=== PATIENT | female | born 1980 | race Caucasian/White ===

== ENCOUNTER 2019-07-16 13:08 | Emergency (ER) | payer MEDICARE, MEDICAID, SELFPAY ==
[2019-07-16 13:37] VITALS: BP 147/82; PULSE 75; RESP 16; TEMP 36.9; O2SAT 98
--- NOTE | 2019-07-16 14:02 | ED.URI ---
HPI - URI/Sore Throat General Chief Complaint: Upper Respiratory Infection Stated Complaint: sinus infection Time Seen by Provider: 07/16/19 14:02 Source: patient and RN notes reviewed History of Present Illness HPI Narrative: Patient is a 39-year-old female presents the urgent care with complaints of sinus infection . Patient states she has had a nonproductive cough, sinus congestion, facial pressure, rhinorrhea. Patient denies any fever. Has been using Mucinex without much relief. No other acute complaints. No acute distress noted. Patient aware the plan of care. Related Data Home Medications Medication Instructions Recorded Confirmed No Home Medications 07/16/19 07/16/19 Allergies Allergy/AdvReac Type Severity Reaction Status Date / Time latex Allergy Mild skin rash Verified 07/16/19 14:12 to area latex touches. Review of Systems Review of Systems: Narrative: CONSTITUTIONAL: Denies fever, chills, or sweats. EYES: Denies visual changes, redness, or discharge. ENT: Reports of rhinorrhea, congestion, facial pressure CARDIOVASCULAR: Denies chest pain, palpitations, or edema. RESPIRATORY: Reports a nonproductive cough without dyspnea GASTROINTESTINAL: Denies abdominal pain, nausea, vomiting, or diarrhea. GENITOURINARY: Denies dysuria or hematuria. SKIN: Denies rash or itching. MUSCULOSKELETAL: Denies back pain, joint pain, or myalgia. NEUROLOGIC: Denies headache, numbness, or weakness. All other systems reviewed are negative, except as documented in HPI. PMFSH Comments At the time of my signature, I reviewed and agree with the nursing past medical, surgical, social, and family history. There is no relevant family history pertinent to the patient complaint. Exam Narrative: Exam Narrative: GENERAL: This is a well-nourished, well-developed patient, in no apparent distress. HEAD: normocephalic, atraumatic. EYES: PERRL. Sclera clear/white. Vision is grossly intact. EARS: External ears normal, auditory canals clear and without drainage, unable to visualize right TM due to cerumen impaction, left TMs normal without perforation. Hearing grossly intact. NOSE: External nose normal with no obvious nasal discharge, bilateral erythemic nares with clear rhinorrhea. THROAT: Mucous membranes moist, posterior pharynx clear. NECK: Neck supple, non-tender without lymphadenopathy CARDIOVASCULAR: Regular rate and rhythm without murmurs, gallops, or rubs. RESPIRATORY: Clear to auscultation. Breath sounds equal bilaterally. No wheezes, rales, or rhonchi. SKIN: warm, intact with no suspicious lesions or rash, good texture and turgor. NEURO: awake, alert, and oriented to person, place and time. There were no obvious focal neurologic abnormalities. EXTREMITIES: No clubbing, cyanosis, or edema. No joint tenderness, effusion, or edema noted. Course Vital Signs Vital signs: Vital Signs Temperature 98.4 F 07/16/19 13:37 Pulse Rate 75 07/16/19 13:37 Respiratory Rate 16 07/16/19 13:37 Blood Pressure 147/82 H 07/16/19 13:37 Pulse Oximetry 98 07/16/19 13:37 Temperature 98.4 F 07/16/19 13:37 Pulse Rate 75 07/16/19 13:37 Respiratory Rate 16 07/16/19 13:37 Blood Pressure 147/82 H 07/16/19 13:37 Pulse Oximetry 98 07/16/19 13:37 Reviewed?patient is informed that they may have pre-hypertension or hypertension based on a blood pressure reading in the department. I recommend the patient call the primary care provider listed on their discharge instructions or a physician of their choice this week to arrange follow-up for further evaluation of possible pre-hypertension or hypertension. MDM - URI/Sore Throat MDM Narrative Medical decision making narrative: Advised the patient to use Claritin and Flonase [id number] for postnasal drainage and sinus relief. Use humidifier at night. Use Tylenol/ibuprofen as needed. Increase fluids and rest. Follow-up with PCP within 2 to 5 days or for worsening s
== END 2019-07-16 14:16 | disposition home or self-care (01) ==
PROVIDERS: Emergency Provider Nurse Practitioner Family
DX: J06.9 Acute upper respiratory infection, unspecified (principal)
CPT/HCPCS: 99211; G0463

== ENCOUNTER 2021-01-22 14:07 | Emergency (ER) | payer MEDICARE, MEDICAID, SELFPAY ==
--- NOTE | ~2021-01-22 | XR_ITS ---
EXAMINATION: XR chest 2V DATE: 01/22/2021 15:18 INDICATION: Cough. COVID-19 positive. TECHNIQUE: Frontal and lateral views of the chest were obtained. COMPARISON: Chest 2 views 01/08/2010 FINDINGS: The chest demonstrates clear lungs without pneumonia, pleural effusion, or pneumothorax. Th e heart size is normal. IMPRESSION: 1. No acute cardiopulmonary disease. Reviewed, dictated and finalized at location A.
[2021-01-22 14:16] VITALS: BP 151/97; PULSE 109; RESP 18; TEMP 37.3; O2SAT 99
[2021-01-22 14:20] VITALS: BP 151/97; PULSE 109; RESP 18; TEMP 37.3; O2SAT 99
--- NOTE | 2021-01-22 14:39 | ED.ABDPAIN ---
HPI - Abdominal Pain General Chief Complaint: Upper Respiratory Infection Stated Complaint: Coughing, congestion and right Abdomen pain Time Seen by Provider: 01/22/21 14:39 Source: patient Mode of arrival: ambulatory Limitations: no limitations History of Present Illness HPI narrative: Priya Kee is a 40 yo female with respiratory symptoms including cough fever chills for the last 2 days she has a history of having COPD and hypertension she has had no nausea vomiting or diarrhea but she was up all night long with a coughing spell which was dry and drove her to come to urgent care today Blood pressure is elevated and she is tachycardic Related Data Home Medications Medication Instructions Recorded Confirmed quetiapine 400 mg PO DAILY 01/22/21 01/22/21 Allergies Allergy/AdvReac Type Severity Reaction Status Date / Time latex Allergy Mild skin rash Verified 01/22/21 14:20 to area latex touches. Review of Systems Review of Systems: CONSTITUTIONAL: Denies fever, chills, sweats. Headache EYES: Denies visual changes, redness, discharge. ENT: Denies rhinorrhea, congestion, sore throat, otalgia. CARDIOVASCULAR: Denies chest pain, palpitations, edema. RESPIRATORY: Denies dyspnea, wheezing, dry cough, chest wall pain GASTROINTESTINAL no abdominal pain, nausea, vomiting, diarrhea. GENITOURINARY: Denies dysuria, hematuria, abnormal discharge SKIN: Denies rash or itching. NEUROLOGIC: Denies numbness, or focal weakness. PSYCHIATRIC: Denies anxiety or depression. PMFSH Past Medical History Medical History (Updated 01/22/21 @ 15:53 by Kailee Davison CNP) COPD (chronic obstructive pulmonary disease) Hypertension Family History Family History (Updated 01/22/21 @ 15:12 by Kailee Davison CNP) Other Diabetes mellitus Heart disease Hypertension Social History Social History (Updated 01/22/21 @ 15:12 by Kailee Davison CNP) Smoking packs per day: 0.25 Smoking cigarettes per day: 5.0 Smoking status: Current every day smoker Alcohol intake: current Comments At time of signature, I agree with nursing past medical, surgical, social and family history. There is no relevant family history pertinent to the presenting complaint. Exam Narrative: GENERAL: This is a well-nourished, well-developed patient, in mild distress. HEAD: normocephalic, atraumatic. EYES:Sclera clear/white. Vision is grossly intact. EARS: External ears normal, auditory canals clear and without drainage, TMs normal without perforation. Hearing grossly intact. NOSE: External nose normal without nasal discharge, nares without redness, no rhinorrhea. THROAT: Mucous membranes moist, posterior pharynx erythema NECK: Neck supple, non-tender CARDIOVASCULAR: Tachycardia rate and rhythm without murmurs, gallops, or rubs. RESPIRATORY: Clear to auscultation. Breath sounds equal bilaterally. No wheezes, rales, or rhonchi. GASTROINTESTINAL: Abdomen soft, non-tender, SKIN: warm, intact with no suspicious lesions or rash, good texture and turgor. NEURO: awake, alert, and oriented to person, place and time. There were no obvious focal neurologic abnormalities. Steady gait EXTREMITIES: Normal range of motion. BACK: Nontender without deformity Course Course Emergency Course: Patient comes here for respiratory symptoms including cough chills General fever not feeling well COVID is positive Complaints of right-sided chest wall pain chest x-ray done -no acute cardiopulmonary disease Patient started on albuterol inhaler, prednisone, Tessalon Michele, Zyrtec Patient is to quarantine for 10 days as well as those of her family members in the household have been exposed her Vital Signs Vital signs: Vital Signs Temperature 99.2 F 01/22/21 14:16 Pulse Rate 109 H 01/22/21 14:16 Respiratory Rate 18 01/22/21 14:16 Blood Pressure 151/97 H 01/22/21 14:16 Pulse Oximetry 99 01/22/21 14:16 Temperature 99.2 F 01/03
== END 2021-01-22 16:00 | disposition home or self-care (01) ==
PROVIDERS: Emergency Provider Nurse Practitioner
DX: U07.1 COVID-19 (principal); F17.210 Nicotine dependence, cigarettes, uncomplicated; J44.9 Chronic obstructive pulmonary disease, unspecified; I10 Essential (primary) hypertension
CPT/HCPCS: 71046; 87426; 99213; C9803; G0463

== ENCOUNTER 2021-04-30 14:07 | Emergency (ER) | payer MEDICARE, MEDICAID, SELFPAY ==
[2021-04-30 14:17] VITALS: BP 122/79; PULSE 90; RESP 14; TEMP 37.9; O2SAT 98
--- NOTE | 2021-04-30 15:07 | ED.FEMALEGU ---
HPI - Female Genitourinary General Chief complaint: Urogenital-Female Stated complaint: poss uti Time Seen by Provider: 04/30/21 15:01 Source: patient and RN notes reviewed Mode of arrival: ambulatory Limitations: no limitations History of Present Illness HPI Narrative: Patient presents today complaining of urinary frequency, lower abdominal pressure, and dysuria since yesterday, worse since today. Denies hematuria, nausea or vomiting, chills or sweats. She has tried no medication for symptoms prior to arrival. MD elicited complaint: UTI Related Data Home Medications Medication Instructions Recorded Confirmed quetiapine [Seroquel] 400 mg PO HS 04/30/21 04/30/21 Allergies Allergy/AdvReac Type Severity Reaction Status Date / Time latex Allergy Mild skin rash Verified 04/30/21 14:26 to area latex touches. Review of Systems Review of Systems: CONSTITUTIONAL: Denies body aches, fever, chills, or sweats. EYES: Denies visual changes, redness, or discharge. ENT: Denies rhinorrhea, congestion, sore throat, or otalgia. CARDIOVASCULAR: Denies chest pain, palpitations, or edema. RESPIRATORY: Denies cough or dyspnea. GASTROINTESTINAL: Denies abdominal pain, nausea, vomiting, or diarrhea. GENITOURINARY: + Dysuria, frequency, lower abdominal pressure SKIN: Denies rash, itching, or wounds. MUSCULOSKELETAL: Denies back pain, joint pain, or myalgia. NEUROLOGIC: Denies headache, numbness, tingling, or weakness. PSYCH: Denies depression or anxiety. FOR[facility], [facility] Past Medical History Medical History COPD (chronic obstructive pulmonary disease) Hypertension Family History Family History Other Diabetes mellitus Heart disease Hypertension Social History Social History Smoking packs per day: 0.25 Smoking cigarettes per day: 5.0 Smoking status: Current every day smoker Alcohol intake: current Comments At time of signature, I have reviewed and agree with nursing past medical, surgical, social and family history unless otherwise noted. Please see nursing chart for further information. There is no relevant family history pertinent to the presenting complaint Exam Narrative: GENERAL: Well-appearing, well-nourished, and in no acute distress. HEAD: Normocephalic, atraumatic. EYES: EOMI. No redness or drainage. Conjunctivae normal. ENT: Mucous membranes pink and moist. NECK: Normal AROM. CHEST: No respiratory distress. Clear to auscultation. HEART: Regular rate and rhythm. No murmur appreciated. Normal peripheral pulses. ABDOMEN: Soft, nondistended, normal active bowel sounds.+ Lower abdominal tenderness MUSCULOSKELETAL: No bony tenderness. EXTREMITIES: Normal range of motion. No edema. SKIN: Warm, dry, no rash. Capillary refill normal. Normal skin turgor. NEURO: No focal deficits. Alert and oriented x3. Gait steady. PSYCH: Normal affect. No signs of depression or anxiety. Course Vital Signs Vital signs: Vital Signs Temperature 100.2 F H 04/30/21 14:17 Pulse Rate 90 04/30/21 14:17 Respiratory Rate 14 04/30/21 14:17 Blood Pressure 122/79 04/30/21 14:17 Pulse Oximetry 98 04/30/21 14:17 Temperature 100.2 F H 04/30/21 14:17 Pulse Rate 90 04/30/21 14:17 Respiratory Rate 14 04/30/21 14:17 Blood Pressure 122/79 04/30/21 14:17 Pulse Oximetry 98 04/30/21 14:17 Reviewed. Pt has been instructed to follow up with her PCP regarding her elevated blood pressure today. MDM - Female Genitourinary Differential Diagnosis Differential diagnosis: Likely urinary tract infection, vaginitis and cystitis Lab Data Labs: Urine Glucose Negative Reference Range: Negative Urine Bilirubin Negative
== END 2021-04-30 15:14 | disposition home or self-care (01) ==
PROVIDERS: Emergency Provider Nurse Practitioner
DX: N30.01 Acute cystitis with hematuria (principal); F17.210 Nicotine dependence, cigarettes, uncomplicated; J44.9 Chronic obstructive pulmonary disease, unspecified; I10 Essential (primary) hypertension
CPT/HCPCS: 81003; 87077; 87086; 87186; 99213; G0463